=== PATIENT | male | born 1995 | race American Indian/Alaskan Native ===

== ENCOUNTER 2021-06-04 17:23 | Emergency (ER) | payer OTHER ==
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
[2021-06-04 22:53] VITALS: BP 112/76
== END 2021-06-04 22:54 | disposition home or self-care (01) ==
LOC: ED 17:23
DX: M79.18 Myalgia, other site (principal); Z79.899 Other long term (current) drug therapy; V49.49XA Driver injured in collision with other motor vehicles in traffic accident, initial encounter; Y92.410 Unspecified street and highway as the place of occurrence of the external cause; Y93.89 Activity, other specified; Y99.8 Other external cause status
CPT/HCPCS: 71046